=== PATIENT | female | born 1970 | race Caucasian/White ===

== ENCOUNTER 2021-10-10 11:04 | Outpatient (CLI) | payer OTHER, SELFPAY ==
--- NOTE | 2021-10-10 11:15 | CRLHL7_ITS ---
For Patients: As a result of the 21st Century Cures Act, medical imaging exams and procedure reports are released immediately into your electronic medical record. You may view this report before your referring provider. If you have questions, please contact your health care provider. INDICATION : Esophageal dysphagia. TECHNIQUE : Biphasic esophagram with single and double contrast. Fluoroscopy time was 48 seconds. FINDINGS : Normal swallowing mechanics. Normal esophageal peristalsis. Gastroesophageal junction appears normal. No visualized gastroesophageal reflux. No visualized mass or stricture. IMPRESSION : Normal esophagram. Dictated by Marco Montesinos MD @ 10/10/2021 12:13:04 PM (Electronically Signed)
== END 2021-10-10 11:05 | disposition home or self-care (01) ==
PROVIDERS: PCP Family Medicine; Visit Provider Family Medicine
DX: R13.19 Other dysphagia (principal)
CPT/HCPCS: 74221

== ENCOUNTER 2021-10-16 08:56 | Outpatient (RCR) | payer OTHER, SELFPAY | END 2022-02-12 14:31 | disposition home or self-care (01) | PROVIDERS: PCP Family Medicine; Visit Provider Orthopaedic Surgery | DX: M75.52 Bursitis of left shoulder (principal); M75.51 Bursitis of right shoulder; Z51.89 Encounter for other specified aftercare | CPT/HCPCS: 97110; 97112; 97161 ==

== ENCOUNTER 2022-03-12 07:16 | Outpatient (CLI) | payer OTHER, SELFPAY ==
--- NOTE | 2022-03-12 07:15 | MR_ITS ---
[address] [address] Phone:?[phone] Fax:?[phone] Referring Physician Information: Trevon Garcias M.D. [id number] [facility] [address] Phone:?[phone] Fax:?[phone] Patient:Jelena Esquivel Gregor D.O.B:?1970 Sex:?Female Phone:?[phone] [facility] MRN:?[id number] Exam Date:?03/12/2022 ? EXAM: MRI of the LEFT SHOULDER, without contrast CLINICAL: Left shoulder pain. Evaluate for rotator cuff tear. COMPARISONS: None available. TECHNICAL: MRI sequences of the left shoulder: Axials: PD, PDFS Coronals: PD, T2FS Sagittals: PDFS, T2 SEDATION: None. CONTRAST: None. FINDINGS: Rotator cuff: Supraspinatus/Infraspinatus: There is mild partial interstitial insertional tearing of the distal supraspinatus tendon on coronal series 4 image 11-13. Infraspinatus tendon appears unremarkable. No significant fatty atrophy of the muscle bellies. Teres minor: No tendinosis, tear or atrophy. Subscapularis: Mild tendinosis and minimal partial interstitial tearing of the distal tendon. No significant fatty atrophy of the muscle bellies. Bursae: Subacromial-subdeltoid: Minimal bursal edema. Subcoracoid: No convincing subcoracoid bursal thickening/bursitis. Coracoacromial arch: Acromion morphology: Type I. No os acromiale. Acromiohumeral space: Within normal limits. Coracohumeral space: Within normal limits. Biceps tendon, long head: There is moderate tendinosis and mild superimposed partial interstitial tearing of the intra-articular long head biceps tendon. No significant tendon displacement. Mild fluid about the imaged proximal extra- articular tendon. Glenohumeral joint: Physiologic volume of joint fluid. Articular cartilage: No significant chondral loss. Capsule: Mild irregularity and increased intermediate signal involving the inferior glenohumeral ligament with minimal adjacent edema. There is increased scar/synovitis within the interval. No capsular defect identified. Labrum: Ill-defined fraying/tearing involves the superior labrum posterior to the biceps anchor on coronal series 4 images 15-16. No additional convincing discrete labral tear identified as visualized. No perilabral cyst identified. Bones: No suspicious marrow signal alteration, fracture or dislocation. Acromioclavicular joint: Mild degenerative hypertrophic changes involving the AC joint. No AC joint injury/widening. IMPRESSION: 1. Mild partial interstitial insertional tearing of the distal supraspinatus tendon. Mild tendinosis and minimal partial interstitial tearing of the distal subscapularis tendon. 2. Moderate tendinosis and mild superimposed partial interstitial tearing of the intra-articular long head biceps tendon. 3. Ill-defined fraying/tearing involving the superior labrum posterior to the biceps anchor. 4. Mild changes of the inferior glenohumeral ligament with increased scar/synovitis within the rotator interval which can be seen in patients with adhesive capsulitis, recommend close clinical correlation. 5. Mild degenerative hypertrophic change involving the AC joint. JCZ Electronically signed on 03/19/2022 10:44:00 AM by Shashi Michaels D.O.
== END 2022-03-12 07:17 | disposition home or self-care (01) ==
LOC: MRI 07:17
PROVIDERS: PCP Family Medicine; Visit Provider Orthopaedic Surgery
DX: M25.512 Pain in left shoulder (principal); M75.102 Unspecified rotator cuff tear or rupture of left shoulder, not specified as traumatic; S46.212A Strain of muscle, fascia and tendon of other parts of biceps, left arm, initial encounter; M75.02 Adhesive capsulitis of left shoulder
CPT/HCPCS: 73221

== ENCOUNTER 2022-08-27 08:10 | Outpatient (CLI) | payer OTHER, SELFPAY ==
--- NOTE | 2022-08-27 08:15 | CRLHL7_ITS ---
For Patients: As a result of the Century Cures Act, medical imaging exams and procedure reports are released immediately into your electronic medical record. You may view this report before your referring provider. If you have questions, please contact your health care provider. BILATERAL SCREENING MAMMOGRAM WITH COMPUTER-AIDED DETECTION TECHNIQUE: CC and MLO views were obtained. These mammographic images have been obtained using full-field digital technique. These mammographic images were interpreted with the benefit of computer-aided detection. COMPARISON FILM: 09/06/21, 09/26/20, 09/24/19 and Lt Diag 10/05/19. FINDINGS: There are scattered areas of fibroglandular density IMPRESSION: There is no radiographic evidence for malignancy. ASSESSMENT: BI-RADS Category 1: Negative RECOMMENDATION: Routine screening mammogram in 1 year. A lay language report of this examination will be provided to the patient. Smith Barth M.D. Diagnostic Radiologist [email or web address] MIKEY/Dictated by: Smith Barth MD @ 08/27/2022 12:21:00 PM (Electronically Signed)
== END 2022-08-27 08:11 | disposition home or self-care (01) ==
LOC: MAMMO 08:10
PROVIDERS: PCP Family Medicine; Visit Provider Obstetrics & Gynecology
DX: Z12.31 Encounter for screening mammogram for malignant neoplasm of breast (principal)
CPT/HCPCS: 77063; 77067

== ENCOUNTER 2023-09-23 08:31 | Outpatient (CLI) | payer OTHER, SELFPAY ==
--- NOTE | 2023-09-23 08:45 | CRLHL7_ITS ---
For Patients: As a result of the Cures Act, medical imaging exams and procedure reports are released immediately into your electronic medical record. You may view this report before your referring provider. If you have questions, please contact your health care provider. BILATERAL SCREENING MAMMOGRAM WITH COMPUTER-AIDED DETECTION AND TOMOSYNTHESIS TECHNIQUE: CC and MLO views were obtained. These mammographic images have been obtained using full-field digital technique. These mammographic images were interpreted with the benefit of computer-aided detection. Breast Tomosynthesis was used in this interpretation. COMPARISON FILM: 08/27/22, 09/06/21, 09/26/20. FINDINGS: There are scattered areas of fibroglandular density IMPRESSION: There is no radiographic evidence for malignancy. ASSESSMENT: BI-RADS Category 1: Negative RECOMMENDATION: Routine screening mammogram in 1 year. A lay language report of this examination will be provided to the patient. BRENT GARCIA M.D. Diagnostic/Nuclear Medicine Radiologist [email or web address] TAMIKA:[email or web address] Transcribed: 1:28 p.mTherese hoff/Dictated by: Brent Garcia MD @ 09/25/2023 9:34:00 AM (Electronically Signed)
== END 2023-09-23 08:32 | disposition home or self-care (01) ==
LOC: MAMMO 08:32
PROVIDERS: Visit Provider Obstetrics & Gynecology
DX: Z12.31 Encounter for screening mammogram for malignant neoplasm of breast (principal)
CPT/HCPCS: 77063; 77067

== ENCOUNTER 2024-08-25 08:08 | Outpatient (CLI) | payer OTHER, SELFPAY ==
--- NOTE | 2024-08-25 08:15 | CRLHL7_ITS ---
For Patients: As a result of the Century Cures Act, medical imaging exams and procedure reports are released immediately into your electronic medical record. You may view this report before your referring provider. If you have questions, please contact your health care provider. INDICATION: BILATERAL SCREENING MAMMOGRAM, ASYMPTOMATIC 54 Y/O FEMALE COMPARISON: 09/23/2023, 08/27/2022, 09/06/2021 TECHNIQUE: Digital mammogram in CC and MLO projections including computer-aided detection (CAD) and tomosynthesis. BREAST COMPOSITION: There are scattered areas of fibroglandular density. FINDINGS: No suspicious findings. ASSESSMENT: BI-RADS 2 Benign RECOMMENDATION: Annual screening mammogram. A lay language report of this examination will be provided to the patient. Dictated by: Smith Barth MD @ 08/25/2024 09:11:19 (Electronically Signed)
== END 2024-08-25 08:09 | disposition home or self-care (01) ==
LOC: MAMMO 08:09
PROVIDERS: Visit Provider Obstetrics & Gynecology
DX: Z12.31 Encounter for screening mammogram for malignant neoplasm of breast (principal)
CPT/HCPCS: 77063; 77067